=== PATIENT | female | born 1975 | race African-American/Black ===

== ENCOUNTER → 2017-01-30 05:07 | Day surgery (SDC) | payer MEDICAID ==
[~2017-01-30] VITALS: Ht 162.6 cm; Wt 63.5 kg
--- NOTE | ~2017-01-30 | OP ---
PATIENT NAME: CHANDU PAREKH MEDICAL RECORD: [id number] :73 LOCATION:[facility] ADMISSION DATE: SURGEON: ORQUIDEA CISSE MD DATE OF OPERATION: 01/30/2017 PREOPERATIVE DIAGNOSIS: Right groin bulge. POSTOPERATIVE DIAGNOSIS: Right indirect inguinal hernia. PROCEDURE: Open right indirect inguinal herniorrhaphy with bilayer preperitoneal polypropylene mesh. SURGEON: Orquidea Cisse MD TOPOGRAPHICAL ENGINEER: None. BLOOD LOSS: Minimal. ANESTHESIA: General. COMPLICATIONS: None. The risks, possible complications, and alternatives to the procedure were explained to the patient. She elects to proceed. The discussion specifically included, but was not limited to, bleeding requiring emergency reoperation, infection, chronic pain, hernia recurrence, and the possibility that no hernia will be present. OPERATIVE COURSE: The patient was conveyed to the operating room electively on 01/30/2017. General anesthesia was induced by the anesthesia staff. The abdomen and genitals were sterilely prepped and draped. I went through the patient's transverse scar. I excised a portion of the scar. Subcutaneous flaps were created sharply. I dissected down to Ray fascia, which was incised. The anterior fascia was then cleaned of overlying connective tissue. The rectus abdominis fascia was incised along the direction of its fibers. I bluntly dissected down through the internal oblique and transverse abdominis muscle layers. A preperitoneal pocket was fashioned bluntly. The round ligament was identified and was divided. An indirect hernia was reduced in its entirety. There was no direct hernia. No incisional hernia. I then cut 2 ovals out of a polypropylene mesh. These 2 ovals were sutured together with a running #1 Surgidac suture. I placed the mesh in the preperitoneal space. Once I was satisfied with the placement of the mesh, I allowed the muscular layers to come together over the mesh and these were sutured together in a horizontal mattress fashion with multiple interrupted 0 Surgidac. The external oblique aponeurosis was closed with running #1 Vicryls. The Ray fascia was approximated with interrupted 3-0 Vicryls. The subdermis was approximated with interrupted 3-0 Vicryls. The skin was approximated with a running intracuticular 4-0 Vicryl. Benzoin and Steri-Strips were applied. The patient was then extubated and conveyed to post-anesthesia care unit, where she was in stable condition. I went out to the outpatient department. No family members were present. She is going to be dismissed home on [place] for pain as well as [place]. OPERATIVE REPORT [id number] CAITLINAllysonCHANDU M TRANSINT:[id number] Voice Confirmation ID: [id number] DOCUMENT ID: [id number] ORQUIDEA CISSE MD CC: [id number] DICTATION DATE: 01/30/17 1415 MOTOR POOL CLERK: 01/30/17 1555 REG [facility] [address] [id number]
--- NOTE | ~2017-01-30 | HP ---
PATIENT: CHANDU PAREKH MEDICAL RECORD: [id number] ACCOUNT: [id number] LOCATION:[facility] : 73 ADMISSION DATE: 01/30/17 HISTORY AND PHYSICAL EXAMINATION CHIEF COMPLAINT: Bulge. The patient has a reducible right inguinal hernia. She has undergone a in the past. The patient was referred by Dr. Brannon. The nodule is tender. The risks, possible complications, and alternatives to groin exploration and possible inguinal hernia repair with mesh were explained to the patient. I specifically discussed with her that I would be using mesh. We discussed the possibility of chronic pain, possibility of hernia recurrence, possibility that no hernia would be identified. The history and physical examination is unchanged from when I saw her in the office back in October. TRANSINT:[id number] Voice Confirmation ID: [id number] DOCUMENT ID: [id number] ORQUIDEA CISSE MD CC: TERESITA BRANNON MD [id number] DICTATION DATE: 01/30/17 1409 CARBIDE GRINDER: 01/30/17 1430 REG [facility] [address] [id number]
[~2017-01-30 05:07] MED LIST: IBUPROFEN800 MG PO; PERCOCET 10/3251 TA1 PO
[2017-01-30 08:02] VITALS: BP 139/98; Ht 162.6 cm; Wt 63.5 kg
[2017-01-30 08:34] LABS: HCG URINE NEGATIVE (NEGATIVE)
== END | disposition home or self-care (01) ==
LOC: D.OPS 05:07 → D.PAN 08:00 → D.OPS 08:00 → D.PAN 08:40 → D.OPS 09:30
PROVIDERS: Surgery
DX: K40.90 Unilateral inguinal hernia, without obstruction or gangrene, not specified as recurrent (principal); F17.200 Nicotine dependence, unspecified, uncomplicated; Z01.812 Encounter for preprocedural laboratory examination

== ENCOUNTER 2018-07-30 00:05 | Emergency (ER) | payer MEDICAID ==
[~2018-07-30] VITALS: Ht 162.6 cm; Wt 61.2 kg
[2018-07-30 00:09] VITALS: Ht 162.6 cm; Wt 61.2 kg
[2018-07-30 00:37] LABS: APPEARANCE CLEAR (CLEAR); BACTERIA NONE SEEN /hpf (NONE SEEN); BILIRUBIN NEGATIVE (NEGATIVE); COLOR YELLOW (YELLOW); EPITHELIAL CELLS NSEEN /hpf (0-5); GLUCOSE NEGATIVE (NEGATIVE); KETONE SMALL mg/dL (NEGATIVE); NITRITE NEGATIVE (NEGATIVE); PROTEIN NEGATIVE (NEGATIVE); RED CELLS - URINE 0-5 /hpf (0-5); UROBILINOGEN NORMAL (NORMAL); WHITE CELLS - URINE RARE /hpf (0-5)
[2018-07-30] MEDS ORDERED: PROMETHAZINE W473 ML PO (01:00)
[2018-07-30] MEDS ORDERED: ZPAK PO (01:00)
[2018-07-30 01:52] VITALS: BP 125/74
== END 2018-07-30 01:53 | disposition home or self-care (01) ==
LOC: D.ER 00:05
PROVIDERS: Family Medicine
DX: J06.9 Acute upper respiratory infection, unspecified (principal); R11.2 Nausea with vomiting, unspecified

== ENCOUNTER 2020-08-16 09:51 | Emergency (ER) | payer SELFPAY ==
[~2020-08-16] VITALS: Ht 162.6 cm; Wt 65.9 kg
[~2020-08-16 09:51] MED LIST changes: +PROMETHAZINE W473 ML PO; +ZPAK PO
[2020-08-16 09:58] VITALS: BP 136/92; Ht 162.6 cm; Wt 65.9 kg
[2020-08-16] MEDS ORDERED: DICLOFENAC SODI50 MG PO (11:42)
== END 2020-08-16 11:50 | disposition home or self-care (01) ==
LOC: D.ER 09:51
DX: S09.90XA Unspecified injury of head, initial encounter (principal); H11.32 Conjunctival hemorrhage, left eye; S00.83XA Contusion of other part of head, initial encounter; Y09 Assault by unspecified means